=== PATIENT | female | born 1985 | race American Indian/Alaskan Native ===

== ENCOUNTER 2021-03-07 05:10 | Inpatient (IN) | payer MEDICAID ==
[2021-03-07] MEDS ORDERED: LACTATED RINGERS 1,000 ML ONE ×2 (06:12→11:21)
[2021-03-07] MEDS ORDERED: LACTATED RINGERS 1,000 ML IV ONE (06:48)
[2021-03-07] MEDS ORDERED: BICITRA ORAL LIQD 30ML ONE (07:06)
[2021-03-07] MEDS ORDERED: METOCLOPRAMIDE 10 MG/2 ML INJ ONE (07:07)
[2021-03-07] MEDS ORDERED: FAMOTIDINE 20 MG/2 ML INJ IV ONE (07:07)
[2021-03-07] MEDS ORDERED: OXYTOCIN DRIP 30,000 MILLIUNITS/500 ML BAG IV ONE (07:08)
[2021-03-07] MEDS ORDERED: PHENYLEPHRINE 10 MG/1 ML INJ SDV ONE (07:25)
[2021-03-07] MEDS ORDERED: ONDANSETRON 4 MG/2 ML INJ ONE ×2 (07:25)
[2021-03-07] MEDS ORDERED: KETOROLAC 30 MG/1 ML INJ ONE (07:26)
[2021-03-07] MEDS ORDERED: BUPIVACAINE/PF (0.5%) 5 MG/1 ML 30 ML VIAL INFILTRATI ONE (07:26)
[2021-03-07] MEDS ORDERED: dexAMETHasone 20 MG/5 ML VIAL ONE (07:26)
--- NOTE | 2021-03-07 07:35 | Anesthesia Consultation ---
Anesthesia Consult and Med Hx Date of service: 03/07/21 - Airway Anesthetic Teeth Evaluation: Good ROM Head & Neck: Adequate Mental/Hyoid Distance: Adequate Mallampati Class: Class II Intubation Access Assessment: Probably Good - Pulmonary Exam CTA: Yes - Cardiac Exam Cardiac Exam: RRR - Pre-Operative Health Status ASA Pre-Surgery Classification: ASA3 Proposed Anesthetic Plan: Spinal - Pulmonary Hx Asthma: No COPD: No Hx Pneumonia: No - Cardiovascular System Hx Hypertension: No - Central Nervous System Hx Seizures: No Hx Psychiatric Problems: No - Endocrine Hx Renal Disease: No Hx End Stage Renal Disease: No Hx Hypothyroidism: No Hx Hyperthyroidism: No - Hematic Hx Anemia: No Hx Sickle Cell Disease: No - Other Systems Hx Alcohol Use: No Hx Obesity: Yes
--- NOTE | 2021-03-07 07:35 | Anesthesia Day of Surgery ---
Anesthesia Day of Surgery - Day of Surgery Patient Examined: Yes Patient H&P Reviewed: Yes Patient is NPO: Yes
[2021-03-07 07:40] LABS: Hematocrit TNR % (30.3-42.9); Hemoglobin TNR gm/dl (10.1-14.3); Mean Corpuscular HGB Conc TNR % (30-34); Mean Corpuscular Volume TNR fl (79-97); Platelet Count TNR K/mm3 (140-440); Red Blood Count TNR M/mm3 (3.65-5.03); Red Cell Distribution Width TNR % (13.2-15.2)
[2021-03-07] MEDS ORDERED: SODIUM CHLORIDE 0.9% IRR 1,500 ML BOTTLE IR ONE (08:30)
[2021-03-07] MEDS ORDERED: WATER FOR IRRIG STERILE 1,500 ML BOTTLE IR ONE (08:30)
[2021-03-07] MEDS ORDERED: SODIUM CHLORIDE 0.9% 1000 ML 1,000 ML ONE (09:17)
[2021-03-07] MEDS ORDERED: SODIUM CHLORIDE 0.9% 100 ML ONE (09:17)
--- NOTE | 2021-03-07 09:20 | History and Physical Report ---
History of Present Illness Date of examination: 03/07/21 Date of admission: 03/07/21 05:10 Chief complaint: I am here for my History of present illness: Patient is a 36-year-old 2 para 0 who presents today at 39 weeks for elective section secondary to placenta previa diagnosed in the second trimester which has yet to resolve. The was initially also breech presentation however he has since turned to cephalic. She has had uncomplicated course. Her labs have been normal. She started care in the first trimester. Past History Past Medical History: no pertinent history Past Surgical History: no surgical history Family/Genetic History: none Social history: single - Obstetrical History Expected Date of Delivery: 03/19/21 Actual Gestation: 39 Week(s) 0 Day(s) : 1 Number of Living Children: 0 Medications and Allergies Allergies Allergy/AdvReac Type Severity Reaction Status Date / Time amoxicillin Allergy Anaphylaxis Verified 03/07/21 06:06 Penicillins Allergy Anaphylaxis Verified 03/07/21 06:06 Home Medications Medication Instructions Recorded Confirmed Last Taken Type One Daily Tablet 1 tab PO DAILY 03/07/21 03/07/21 03/07/21 05:00 History Docusate Sodium [Colace] 100 mg PO BID #60 capsule 03/08/21 Unknown Rx Ferrous Sulfate [Feosol 325 MG tab] 325 mg PO BID #60 tablet 03/08/21 Unknown Rx Ibuprofen [Motrin] 800 mg PO Q8HR PRN #40 tablet 03/08/21 Unknown Rx oxyCODONE /ACETAMINOPHEN [Percocet 2 tab PO Q6HR PRN #40 tablet 03/08/21 Unknown Rx 5/325] Review of Systems All systems: negative Ears, nose, mouth and throat: deferred - Vital Signs Vital signs: Vital Signs Temp Resp 98.6 F 17 03/07/21 05:55 03/07/21 05:55 Temp Pulse Resp BP Pulse Ox 98.6 F 71 17 121/74 03/07/21 05:55 03/07/21 07:09 03/07/21 05:55 03/07/21 07:09 - Physical Exam Breasts: Cardiovascular: Regular rate, Normal S1, Normal S2 Lungs: Positive: Clear to auscultation, Normal air movement Abdomen: Positive: normal appearance, soft, normal bowel sounds. Negative: distention, tenderness Vulva: both: normal Vagina: Positive: normal moisture. Negative: discharge Cervix: Negative: lesion, discharge Uterus: Positive: normal size, normal contour Adnexa: both: normal Anus/Rectum: Positive: normal perianal skin, heme negative. Negative: rectal mass, hemorrhoids Extremities: Deep Tendon Reflex Grade: Normal +2 - Obstetrical FHR: auscultation normal Cervical Dilatation: 0 Results Result Diagrams: 03/07/21 20:55 All other labs normal. Assessment and Plan IUP at 38 weeks here for primary section secondary to placenta previa unresolved. Will admit for surgery. All consents have been signed and placed o n chart. Patient has had all questions answered answered to proceed.
--- NOTE | 2021-03-07 09:21 | Procedure Note ---
OB Delivery Note - Delivery Date of Delivery: 03/07/21 Surgeon: BRIANA QUESADA Estimated blood loss: 500cc - Section Preop diagnosis: other (Placenta previa) Postop diagnosis: same section procedure: primary low transverse Disposition: PACU Complications: none Narrative: See op report - A at 1 minute: 8 at 5 minutes: 9 Gender: Male (6 pounds 8 ounces,2957g)
--- NOTE | 2021-03-07 09:39 | Progress Note ---
Regional Anesthesia Block - Regional Anesthesia Block Start Time: :35 Stop Time: :40 Performed By:: JUDY LAZCANO Procedure: U/S guided bilateral tap block performed for post-operative pain requested by Dr. Elliott. H&P & labs reviewed. Procedure explained, questions answered, consent obtained. Patient in the supine position with ekg, blood pressure cuff and pulse ox on and working in PACU. Timeout performed immediately before start of procedure. Probe placed in the mid-axillary line and the external oblique, internal oblique, and transverse abdominus muscles identified. Skin was cleansed with chlorahexadine 0.5% and allowed to dry. A 4" 20 G Iglesias echogenic needle was advanced in plane until the tip was in the fascial plane between the internal oblique and the transverse abdominus. After negative aspiration 35 ml/side of [30 ml 0.5% Bupivacaine], [10 mg dexamethasone], and [40 ml sterile saline] was injected in 5 ml increments with negative aspiration in between. Patient tolerated procedure well. Chau ARTEAGA
--- NOTE | 2021-03-07 09:40 | Progress Note ---
Spinal Anesthesia Block - Spinal Anesthesia Block Performed by:: JUDY LAZCANO Procedure: Sitting, sterile chlorahexadine 0.5% prep/drape, 1% lidocaine skin local, 25G spinal needle + introducer at L3-4, + CSF, - Heme, [1.9 ml 0.5% bupivacaine + 10 mcg dexmedetomidine] injected, drape removed, patient positioned supine with left uterine displacement, and spinal level verified to be adequate prior to surgery. Chau ARTEAGA
--- NOTE | 2021-03-07 11:14 | Operative Report ---
Operative Report Operative Report: Preoperative diagnosis: Intrauterine at 38 2/7 weeks 2. Placenta previa Postoperative diagnosis: Same Procedure: Primary low transverse section Surgeon: Dr. Sonya Elliott EBL: 600 Urine output: 200 mL IV fluids: 1700 mL Findings: Viable male in the vertex. weight 6 lbs. 8 oz. 2957 g Apgars 8 and 9. Otherwise normal pelvic anatomy, adhesions of small bowel to the posterior uterine wall, evidence of staining with old blood on uterus and ovaries. Findings are consistent with endometriosis and possible rupture of an endometrioma Specimens: None Complications: None Procedure: The patient was admitted to the OR with IV running and in place. She was properly identified as herself. She was given spinal anesthesia in the OR without difficulty. She was placed in the dorsal supine position with a leftward tilt. A Farnsworth catheter was inserted. She was then prepped and draped in the normal sterile fashion. An Allis test was used to confirm adequate anesthesia. Once confirmed, the incision was made with the scalpel and carried to the underlying fascia using the scalpel and the Bovie. The fascia was incised in the midline and incision was extended bilaterally using the curved Ricks scissors. The fascia was then dissected from the underlying rectus muscles in a series of sharp and blunt dissection using the Ricks scissors. Muscles were in the in the midline sharply using Metzenbaum scissors and the peritoneum was entered into bluntly using the surgeon's fingers. A bladder blade was then placed into the incision to protect the bladder. Following this the bladder flap was created. Hysterotomy incision was then made in the scalpel. Upon uterine entry, the amniotic sac was ruptured for clear fluid. The infant was then delivered without difficulty. His mouth and nose were suctioned on the field. The cord was clamped and cut and he was handed to the waiting NICU personnel. The uterus was then exteriorized and cleared of all clots and debris. The hysterotomy incision was then closed in a running locked fashion using 0 Vicryl. The abdomen was then copiously irrigated with warm normal saline. The above findings were noted with adhesions to the posterior uterine wall. Following th is the uterus was replaced into the abdominal cavity. At this point the muscles were reapproximated in the midline using individual sutures of 0 Vicryl. Following this the fascia was closed in a running fashion using 0 Vicryl. Tissue was then copiously irrigated. Retention sutures were placed in the subcutaneous fat tissue Skin was closed in a running fashion using 3-0 Monocryl. The sponge lap needle and instrument counts were correct 2. The patient tolerated the procedure well. She was taken to recovery in stable condition.
[2021-03-07] MEDS ORDERED: WITCH HAZEL/ GLYCERIN PAD TP PRN (12:27)
[2021-03-07] MEDS ORDERED: D5W/LACTATED RINGERS 1,000 ML IV SCH (12:27)
[2021-03-07] MEDS ORDERED: LANOLIN/ZINC/DIMETHICONE (LANSINOH) 7 GM TP PRN (12:27)
[2021-03-07] MEDS ORDERED: OXYTOCIN DRIP 30 UNITS/500 ML BAG IV SCH (12:27)
[2021-03-07] MEDS ORDERED: SIMETHICONE 80 MG CHEW TAB PO PRN (12:27)
[2021-03-07] MEDS ORDERED: ONDANSETRON 4 MG/2 ML INJ IV PRN (12:27)
[2021-03-07] MEDS ORDERED: NALOXONE 0.4 MG/1 ML INJ IV PRN (12:27)
[2021-03-07] MEDS ORDERED: FAMOTIDINE 20 MG/2 ML INJ IV SCH (13:00)
[2021-03-07] MEDS ORDERED: BICITRA ORAL LIQD 30ML PO SCH (14:00)
[2021-03-07] MEDS ORDERED: FAMOTIDINE 20 MG TAB PO NR (14:00)
[2021-03-07] MEDS ORDERED: METOCLOPRAMIDE 10 MG/2 ML INJ IV NR (14:00)
[2021-03-07] MEDS: IBUPROFEN 800 MG TAB PO PRN (16:25)
[2021-03-07] MEDS: MORPHINE 2 MG/1 ML INJ IV PRN (21:16)
[2021-03-07 21:36] LABS: Hematocrit 32.1 % (30.3-42.9); Hemoglobin 10.3 gm/dl (10.1-14.3)
[2021-03-08] MEDS: MORPHINE 2 MG/1 ML INJ IV PRN (02:53)
--- NOTE | 2021-03-08 06:48 | Progress Note ---
Assessment and Plan POD 2 s/p ltcs. Doing well. Continue routine care Subjective - Subjective Date of service: 03/08/21 Interval history: Patient is a 36-year-old 2 para 0 who presents today at 39 weeks for elective section secondary to placenta previa diagnosed in the second trimester which has yet to resolve. The infant was initially also breech presentation however he has since turned to cephalic. She has had uncomplicated course. Her labs have been normal. She started care in the first trimester. Patient reports: appetite normal, voiding normally, pain well controlled, ambulating normally : doing well Objective - Vital Signs Latest vital signs: Vital Signs Temp Pulse Resp BP BP Pulse Ox 03/08/21 04:56 98.5 F 88 20 117/62 100 03/08/21 03:23 18 03/08/21 02:53 18 03/08/21 00:11 98.5 F 61 20 123/68 100 03/07/21 21:46 18 03/07/21 21:16 18 03/07/21 20:50 98.4 F 20 118/68 03/07/21 17:06 98.1 F 83 18 110/57 97 03/07/21 16:25 16 03/07/21 11:55 98.0 F 68 18 102/60 100 03/07/21 10:35 71 20 100/52 03/07/21 10:15 80 18 94/44 03/07/21 10:00 67 18 88/44 03/07/21 09:45 70 18 94/52 03/07/21 09:30 70 20 101/55 03/07/21 09:23 98 F 84 18 84/42 03/07/21 07:09 71 121/74 Intake and Output 03/07/21 03/07/21 03/08/21 14:59 22:59 06:59 Intake Total 1600 240 240 Output Total 350 2500 600 Balance 1250 -2260 -360 Intake: IV 1600 Oral 240 240 Output: Urine 350 2500 600 Indwelling Catheter 1900 Uretheral (Farnsworth) 100 Void 600 600 Other: Total, Intake Amount 240 240 Total, Output Amount 400 600 # Voids Void 2 Estimated Blood Loss 668
[2021-03-08] MEDS: IBUPROFEN 800 MG TAB PO PRN ×3 (09:56→21:44)
--- NOTE | 2021-03-08 12:02 | Post Anesthesia Evaluation ---
- Post Anesthesia Evaluation Patient Participated: Yes Airway Patent: Yes Stable Respiratory Function: Yes Nausea/Vomiting: No Temp > 96.8F: Yes Pain Manageable: Yes Adequeate Hydration: Yes Anesthesia Complications: No Block Receding Appropriately: Yes Patient on Ventilator: No
[2021-03-08] MEDS: oxyCODONE /ACETAMINOPHEN 5-325MG TAB PO PRN (18:25)
[2021-03-09] MEDS: oxyCODONE /ACETAMINOPHEN 5-325MG TAB PO PRN ×3 (01:08→14:49)
[2021-03-09] MEDS: IBUPROFEN 800 MG TAB PO PRN (05:40)
--- NOTE | 2021-03-09 08:52 | Progress Note ---
Assessment and Plan POD 2 s/p ltcs. Doing well. Plan for discharge on tomorrow. Subjective - Subjective Date of service: 03/09/21 Interval history: Patient is a 36-year-old 2 para 0 who presents today at 39 weeks for elective section secondary to placenta previa diagnosed in the second trimester which has yet to resolve. The infant was initially also breech presentation however he has since turned to cephalic. She has had uncomplicated course. Her labs have been normal. She started care in the first trimester. Patient reports: appetite normal, voiding normally, pain well controlled, ambulating normally : doing well Objective - Vital Signs Latest vital signs: Vital Signs Temp Pulse Resp BP BP Pulse Ox 03/09/21 06:40 18 03/09/21 05:40 18 03/09/21 02:08 18 03/09/21 01:08 18 03/09/21 00:08 70 18 99/47 96 03/08/21 22:44 18 03/08/21 21:44 18 03/08/21 15:56 98.0 F 77 19 113/66 97 Intake and Output 03/08/21 03/09/21 03/09/21 22:59 06:59 14:59 Intake Total 450 Balance 450 Intake: Intake, Free Water 450 Other: # Voids Void 1 - Exam Cardiovascular: Present: Regular rate, Normal S1, Normal S2 Lungs: Present: Clear to auscultation, Normal air movement Abdomen: Present: normal appearance, soft Extremities: Present: normal Incision: Present: normal, dry, intact
--- NOTE | 2021-03-09 09:02 | Discharge Summary ---
Providers - Providers Date of Admission: 03/07/21 05:10 Date of discharge: 03/09/21 Attending physician: BRIANA QUESADA Primary care physician: BRIANA QUESADA Hospitalization Reason for admission: section, other (placenta previa) Delivery: Procedure: primary low transverse Incision: normal, dry, intact Other procedures: none Discharge diagnosis: IUP at term delivered baby: male Hospital course: unremarkable Condition at discharge: Good Disposition: DC-01 TO HOME OR SELFCARE Plan - Discharge Medications Prescriptions: Docusate Sodium [Colace] 100 mg PO BID #60 capsule Ferrous Sulfate [Feosol 325 MG tab] 325 mg PO BID #60 tablet Ibuprofen [Motrin] 800 mg PO Q8HR PRN #40 tablet PRN Reason: Pain, Mild (1-3) oxyCODONE /ACETAMINOPHEN [Percocet 5/325] 2 tab PO Q6HR PRN #40 tablet PRN Reason: Pain - Provider Discharge Summary Activity: routine, no sex for 6 weeks, no heavy lifting 4 weeks, no strenuous exercise Diet: routine Instructions: routine Additional instructions: [] Smoking cessation referral if applicable(refer to patient education folder for contact #) [] Refer to [facility] Booklet Call your doctor immediately for: * Fever > 100.5 * Heavy vaginal bleeding ( >1 pad per hour) * Severe persistent headache * Shortness of breath * Reddened, hot, painful area to leg or breast * Drainage or odor from incision. * Keep incision clean and dry at all times and follow doctor's instructions regarding bathing/showering - Follow up plan Follow up: BRIANA QUESADA MD [Primary Care Provider] - 14 Days
[2021-03-09 15:21] VITALS: BP 105/74
== END 2021-03-09 15:00 | disposition home or self-care (01) | DRG 766 ==
LOC: APU 05:10 → OB 12:19
PROVIDERS: ADMIT Obstetrics & Gynecology; ATTEND Obstetrics & Gynecology
PROC: 10D00Z1 Extraction of Products of Conception, Low, Open Approach (ICD-10-PCS; principal; 2021-03-07)
PROC: 3E0T3BZ Introduction of Anesthetic Agent into Peripheral Nerves and Plexi, Percutaneous Approach (ICD-10-PCS; 2021-03-08)
DX: O44.03 Complete placenta previa NOS or without hemorrhage, third trimester (principal); O99.214 Obesity complicating childbirth; Z20.822 Contact with and (suspected) exposure to COVID-19; O75.0 Maternal distress during labor and delivery; Z3A.38 38 weeks gestation of pregnancy; Z37.0 Single live birth; Z88.0 Allergy status to penicillin; Z88.1 Allergy status to other antibiotic agents
CPT/HCPCS: 36415; 85014; 85018; 85027; 86850; 86900; 86901; 96360; 99211; G0378; G0463; J1100; J1885; J2270; J2370; J2405; J2765; J3490; J7030; J7120; J7121; U0003